=== PATIENT | female | born 1995 | race Caucasian/White ===

== ENCOUNTER 2017-02-06 12:22 | Emergency (ER) | payer SELFPAY ==
[2017-02-06] MEDS ORDERED: Albuterol/Ipratropium 3.0-0.5 MG/3 ML Neb Soln NEB ONE (12:56)
[2017-02-06] MEDS ORDERED: ClonazePAM 0.5 MG Tab PO ONE (12:56)
--- NOTE | 2017-02-06 12:59 | EDM.PDOC ---
ED HPI GENERAL MEDICAL PROBLEM - General Chief Complaint: Respiratory Problem Stated Complaint: ANXIETY Time Seen by Provider: 02/06/17 12:57 Source of Information: Reports: Patient - History of Present Illness INITIAL COMMENTS - FREE TEXT/NARRATIVE: HISTORY AND PHYSICAL: History of present illness: She was history of anxiety generally taking Klonopin 0.1 mg by mouth 3 times a day for several years has been traveling as her boyfriend works in the [place] , she is from [facility] she has been in [place] now in [place] she has been out of her Klonopin for 3 days. She will be returning to [place] in 3 days. She had spoken with her primary care in [place] home recommended she be seen in the emergency room for evaluation. She does feel anxious she complains of chest tightness and sensation of shortness of breath and appears anxious however in no acute distress No fever nausea vomiting chills sweats Review of systems: As per history of present illness and below otherwise all systems reviewed and negative. Past medical history: As per history of present illness and as reviewed below otherwise noncontributory. Surgical history: As per history of present illness and as reviewed below otherwise noncontributory. Social history: No reported history of drug or alcohol abuse. Family history: As per history of present illness and as reviewed below otherwise noncontributory. Physical exam: HEENT: Atraumatic, normocephalic, pupils reactive, negative for conjunctival pallor or scleral icterus, mucous membranes moist, throat clear, neck supple, nontender, trachea midline. Lungs: Clear to auscultation, breath sounds equal bilaterally, chest nontender. Heart: S1S2, regular, negative for clicks, rubs, or JVD. Abdomen: Soft, nondistended, nontender. Negative for masses or hepatosplenomegaly. Negative for costovertebral tenderness. Pelvis: Stable nontender. Genitourinary: Deferred. Rectal: Deferred. Extremities: Atraumatic, negative for cords or calf pain. Neurovascular unremarkable. Neuro: Awake, alert, oriented. Cranial nerves II through XII unremarkable. Cerebellum unremarkable. Motor and sensory unremarkable throughout. Exam nonfocal. Diagnostics: []UA, hCG patient was willing to provide UA and hCG however there is no reason for not going to do the chest x-ray Chest 2 views patient refused chest x-ray Therapeutics: []Klonopin 0.5 mg by mouth now DuoNeb--- treatment made patient anxious after receiving a few minutes of the DuoNeb and she refused further Klonopin 0.5 mg by mouth 3 times a day #10 no refill Follow-up with primary care on return home in 3 days Impression: []Anxiety Definitive disposition and diagnosis as appropriate pending reevaluation and review of above. head Pain Score (Numeric/FACES): 7 - Related Data Allergies Allergy/AdvReac Type Severity Reaction Status Date / Time No Known Allergies Allergy Verified 02/06/17 12:49 Home Meds: Home Meds ClonazePAM [KlonoPIN] 1 mg PO BID 02/06/17 [History] Past Medical History - Past Health History Medical/Surgical History: Denies Medical/Surgical History Psychiatric History: Reports: Anxiety, Depression Social & Family History - Family History Family Medical History: Noncontributory - Tobacco Use Smoking Status *Q: Current Every Day Smoker Years of Tobacco use: 3 Packs/Tins Daily: 1 - Recreational Drug Use Recreational Drug Use: No ED ROS GENERAL - Review of Systems Review Of Systems: ROS reveals no pertinent complaints other than HPI. ED EXAM, GENERAL - Physical Exam Exam: See Below Course - Vital Signs Last Recorded V/S: Last Vital Signs Temp 36.8 C 02/06/17 12:22 Pulse 113 H 02/06/17 12:22 Resp 22 H 02/06/17 12:22 BP 122/71 02/06/17 12:22 Pulse Ox 99 02/06/17 12:22 - Orders/Labs/Meds Orders: Active Orders 24 hr Category Date Time Status RT Aerosol Therapy [RC] ASDIRECTED Care 02/06/17 12:56 Active Chest 2V [CR] Stat Exams 02/06/17 12:57 Ordered HCG QUALITATIVE,URINE [URCHEM] Stat Lab 02/06/17 12:57 Uncollected UA W/MICROSCOPIC [URIN] Stat Lab 02/06/17 12:56 Uncollected Meds: Medications Discontinued Medications Generic Name Dose Route Start Last Admin Trade Name Freq PRN Reason Stop Dose Admin Albuterol/Ipratropium 3 ml 02/06/17 12:56 02/06/17 13:05 Duoneb 3.0-0.5 Mg/3 Ml NEB 02/06/17 12:57 3 ml ONETIME ONE Administration Clonazepam 0.5 mg 02/06/17 12:56 02/06/17 13:21 Klonopin PO 02/06/17 12:57 0.5 mg ONETIME ONE Administration Departure - Departure Time of Disposition: 13:25 Disposition: Home, Self-Care 01 Condition: Good Clinical Impression: Anxiety - Discharge Information Referrals: PCP,None [Primary Care Provider] - Forms: ED Department Discharge Additional Instructions: Medication as prescribed Return if symptoms persist or worsen Follow-up with primary care on return home in 3 days The following information is given to patients seen in the emergency department who are being discharged to home. This information is to outline your options for follow-up care. We provide all patients seen in our emergency department with a follow-up referral. The need for follow-up, as well as the timing and circumstances, are variable depending upon the specifics of your emergency department visit. If you don't have a primary care physician on staff, we will provide you with a referral. We always advise you to contact your personal physician following an emergency department visit to inform them of the circumstance of the visit and for follow-up with them and/or the need for any referrals to a consulting specialist. The emergency department will also refer you to a specialist when appropriate. This referral assures that you have the opportunity for follow-up care with a specialist. All of these measure are taken in an effort to provide you with optimal care, which includes your follow-up. Under all circumstances we always encourage you to contact your private physician who remains a resource for coordinating your care. When calling for follow-up care, please make the office aware that this follow-up is from your recent emergency room visit. If for any reason you are refused follow-up, please contact the [facility] emergency department at and asked to speak to the emergency department charge nurse. - My Orders Last 24 Hours: My Active Orders 02/06/17 12:56 RT Aerosol Therapy [RC] ASDIRECTED UA W/MICROSCOPIC [URIN] Stat 02/06/17 12:57 Chest 2V [CR] Stat HCG QUALITATIVE,URINE [URCHEM] Stat - Assessment/Plan Last 24 Hours: My Active Orders 02/06/17 12:56 RT Aerosol Therapy [RC] ASDIRECTED UA W/MICROSCOPIC [URIN] Stat 02/06/17 12:57 Chest 2V [CR] Stat HCG QUALITATIVE,URINE [URCHEM] Stat
== END 2017-02-06 13:33 | disposition home or self-care (01) ==
LOC: MW.ED 12:22
DX: F41.9 Anxiety disorder, unspecified (principal); F17.210 Nicotine dependence, cigarettes, uncomplicated
CPT/HCPCS: 94640; 99285; A9270; 99282